=== PATIENT | female | born 1985 | race Caucasian/White ===

== ENCOUNTER 2022-07-24 23:28 | Observation (INO) ==
--- NOTE | 2022-07-25 00:03 | Emergency Department Note ---
History of Present Illness General Chief complaint: Abdominal Pain Stated complaint: SHARP ABD PAIN/PAIN WHEN MOVING OR SITTING Time Seen by Provider: 07/24/22 23:34 History of Present Illness Maximum Pain Intensity: 7 This is a 37-year-old female that presents to the emergency department via private vehicle with complaints of "sharp abdominal pain/pain when moving or sitting". The patient notes that around 23 this afternoon she began with epigastric abdominal discomfort. She notes that it then seemed to subside but after dinner the pain worsened. She notes ongoing pain since that time that abruptly worsened just prior to arrival. She denies any fevers or chills. No chest pain. She notes shortness of breath when the pain occurs as the pain will come in waves at times. She denies any history of [place] or PE. She has never had this pain before. She denies any gastric surgery or history of gallbladder surgery. Current pain 01/29. Home Medications Medication Instructions Recorded Confirmed Type bismuth subsalicylate 262 mg 2 tab PO QID PRN Gi Upset 07/25/22 07/25/22 History tablet (Pepto-Bismol) lisinopril 10 mg tablet 10 mg PO DAILY 07/25/22 07/25/22 History metronidazole 1 % topical gel 1 applic topical HS 07/25/22 07/25/22 History semaglutide 1 mg/dose (4 mg/3 mL) 1 mg subcut WE 07/25/22 07/25/22 History subcutaneous pen injector (Ozempic) Allergies Allergy/AdvReac Type Severity Reaction Status Date / Time No Known Allergies Allergy Mild Verified 07/25/22 02:55 Past Med/Surg History Surgical History Hx of section Social History Smoking Status: Never smoker Preferred Language: Albanian Feels Safe at Home: Yes Review of Systems A total of 10 systems reviewed and were otherwise negative Physical Exam Vital Signs Vital Signs - 24 hr 07/24/22 23:29 07/25/22 00:14 07/25/22 04:26 Temperature 35.6 C L Temperature Source Temporal Artery Scan Pulse Rate 97 H Pulse Rate [Apical] 90 73 Respiratory Rate 20 24 22 Respiratory Effort / Characteristics Non-Labored Spontaneous Non-Labored Spontaneous Non-Labored Spontaneous Respiratory Depth Normal Normal Normal Respiratory Pattern Regular Regular Blood Pressure 213/131 H Blood Pressure [Right Arm] 158/92 H 151/98 H Blood Pressure Mean 158 Blood Pressure Mean [Right Arm] 114 115 Blood Pressure Position [Right Arm] Pulse Oximetry 99 99 96 Oxygen Delivery Method Room Air Room Air Room Air Sepsis New/Unexplained Change in Mental Status N/A Sepsis Action Taken by Nursing No Action Required 07/25/22 00:00 07/25/22 06:30 Temperature Temperature Source Pulse Rate Pulse Rate [Apical] 77 Respiratory Rate 18 Respiratory Effort / Characteristics Non-Labored Spontaneous Respiratory Depth Normal Respiratory Pattern Blood Pressure Blood Pressure [Right Arm] 155/90 H Blood Pressure Mean Blood Pressure Mean [Right Arm] 111 Blood Pressure Position [Right Arm] Sitting Pulse Oximetry 95 98 Oxygen Delivery Method Room Air Room Air Sepsis New/Unexplained Change in Mental Status Sepsis Action Taken by Nursing VITAL SIGNS - Vital signs and nursing notes were reviewed. Hypertensive, otherwise stable. GENERAL -37-year-old female appearing her stated age who is in no acute distress . Communicates well with provider and answers questions appropriately. SKIN - Without rashes. No meningeal or petechial rash. HEAD - NC/AT. EYES - PERRL with EOMI bilaterally. Sclera anicteric. EARS - No deformities of external structures noted on gross examination bilaterally MOUTH/OROPHARYNX - Without perioral cyanosis. NECK - Neck with FROM. No nuchal rigidity. LUNGS - Chest wall symmetric without accessory muscle use, intercostals retractions, or central cyanosis. Normal vesicular breath sounds CTA B/L. No wheezes, rales, or rhonchi appreciated. CARDIAC - RRR with S1/S2. No murmur, rubs, or gallops appreciated. ABDOMEN - Abdominal contour normal without pulsations or visible masses. BS normoactive all four quadrants. There is epigastric abdominal tenderness to palpation. No palpable masses, hepatosplenomegaly, or ascites noted. EXTREMITIES - No clubbing or peripheral cyanosis. +5/5 strength noted in UE/LE bilaterally. NEUROLOGIC - Cranial nerves II through XII grossly intact. PSYCH - A&O,and cooperates fully with examiner. Pt is very pleasant and interacts well with examiner. Course Administered Medications Discontinued Medications Morphine Sulfate (Morphine Sulfate 4 Mg/Ml 1 Ml Carp\\Vial) 4 mg IV NOW STA Stop: 07/25/22 00:31 Last Admin: 07/25/22 00:36 Dose: 4 mg Documented By: CONCEPCIÓN Ondansetron HCl (Ondansetron Inj 2 Mg/Ml 2 Ml Vial) 4 mg IV NOW STA Stop: 07/25/22 00:31 Last Admin: 07/25/22 00:36 Dose: 4 mg Documented By: CONCEPCIÓN Medical Decision Making Laboratory Data Result diagrams: 07/25/22 00:06 07/25/22 00:06 Lab Results 07/25/22 07/25/22 07/25/22 Range/Units 00:06 00:06 00:06 WBC 8.57 (4.8-10.8) K/ul RBC 5.69 H (3.93-5.22) M/uL Hgb 13.6 (12.0-16.0) g/dl Hct 42.4 (34.1-44.9) % MCV 74.5 L (80.0-100.0) fL MCH 23.9 L (25.0-34.0) pg MCHC 32.1 (32.0-36.0) g/dL RDW Std Deviation 39.5 (36.4-46.3) fL RDW Coeff of [place]ult[place] 14.8 H (11.5-14.5) % Plt Count 270 (130-400) K/uL MPV 8.5 L (9.4-12.3) fL Immature Gran % (Auto) 0.2 % Neut % (Auto) 84.1 % Lymph % (Auto) 9.3 % [place] % (Auto) 5.4 % Eos % (Auto) 0.8 % Baso % (Auto) 0.2 % Neut # (Auto) 7.20 H (1.4-6.5) K/uL Lymph # (Auto) 0.80 L (1.2-3.4) K/uL [place] # (Auto) 0.46 (0.24-0.82) K/uL Eos # (Auto) 0.07 (0-0.50) K/uL Baso # (Auto) 0.02 (0-0.2) K/uL Immature Gran # (Auto) 0.02 (0.00-0.02) K/uL PT 10.8 (9.0-12.0) Seconds INR 1.0 (0.9-1.1) APTT 22.8 (21.0-31.0) Seconds PTT Ratio 0.8 Sodium 135 L (136-145) mmol/L Potassium 3.9 (3.5-5.1) mmol/L Chloride 100 (98-107) mmol/L Carbon Dioxide 25 (21-32) mmol/L Anion Gap 10 (3-11) BUN 10 (6-23) mg/dl Creatinine 0.63 (0.6-1.2) mg/dl Est Cr Clr Drug Dosing 175.5 ml/min Est GFR ( Amer) 131.0 ml/min Est GFR (Non-Af Amer) 113.0 ml/min BUN/Creatinine Ratio 15.9 (10-20) Glucose 115 H (70-99(Fasting)) mg/dl Calcium 9.4 (8.5-10.1) mg/dl Magnesium 2.4 (1.7-2.4) mg/dl Total Bilirubin 1.6 H (0.2-1.0) mg/dl AST 178 H (13-39) U/L ALT 118 H (7-52) U/L Alkaline Phosphatase 154 H (34-104) U/L Troponin I High Sens 3.7 (0-14) pg/ml Total Protein 8.4 H (6.0-8.3) gm/dl Albumin 4.4 (3.4-5.0) gm/dl Globulin 4.0 (2.5-4.0) gm/dl Albumin/Globulin Ratio 1.1 (0.9-2) Lipase 14 (11-82) U/L HCG, Qual (Negative) Urine Color Urine Appearance (Clear) Urine pH (4.5-7.5) Ur Specific [place] (1.000-1.030) Urine Protein (Negative) Urine Glucose (UA) (Negative) Urine Ketones (Negative) Urine Blood (Negative) Urine Nitrite (Negative) Urine Bilirubin (Negative) Urine Urobilinogen (Negative) Ur Leukocyte Esterase (Negative) Urine WBC (Auto) (0-5) /hpf Urine RBC (Auto) (0-4) /hpf U Hyaline Cast (Auto) (0-5) /lpf U Epithel Cells (Auto) (0-5) /lpf Urine Bacteria (Auto) (Negative) SARS-CoV-2, RNA, NAAT (NEGATIVE) 07/25/22 07/25/22 07/25/22 Range/Units 00:06 00:40 Unknown WBC (4.8-10.8) K/ul RBC (3.93-5.22) M/uL Hgb (12.0-16.0) g/dl Hct (34.1-44.9) % MCV (80.0-100.0) fL MCH (25.0-34.0) pg MCHC (32.0-36.0) g/dL RDW Std Deviation (36.4-46.3) fL RDW Coeff of [place] (11.5-14.5) % Plt Count (130-400) K/uL MPV (9.4-12.3) fL Immature Gran % (Auto) % Neut % (Auto) % Lymph % (Auto) % [place] % (Auto) % Eos % (Auto) % Baso % (Auto) % Neut # (Auto) (1.4-6.5) K/uL Lymph # (Auto) (1.2-3.4) K/uL [place] # (Auto) (0.24-0.82) K/uL Eos # (Auto) (0-0.50) K/uL Baso # (Auto) (0-0.2) K/uL Immature Gran # (Auto) (0.00-0.02) K/uL PT (9.0-12.0) Seconds INR (0.9-1.1) APTT (21.0-31.0) Seconds PTT Ratio Sodium (136-145) mmol/L Potassium (3.5-5.1) mmol/L Chloride (98-107) mmol/L Carbon Dioxide (21-32) mmol/L Anion Gap (3-11) BUN (6-23) mg/dl Creatinine (0.6-1.2) mg/dl Est Cr Clr Drug Dosing ml/min Est GFR ( Amer) ml/min Est GFR (Non-Af Amer) ml/min BUN/Creatinine Ratio (10-20) Glucose (70-99(Fasting)) mg/dl Calcium (8.5-10.1) mg/dl Magnesium (1.7-2.4) mg/dl Total Bilirubin (0.2-1.0) mg/dl AST (13-39) U/L ALT (7-52) U/L Alkaline Phosphatase (34-104) U/L Troponin I High Sens (0-14) pg/ml Total Protein (6.0-8.3) gm/dl Albumin (3.4-5.0) gm/dl Globulin (2.5-4.0) gm/dl Albumin/Globulin Ratio (0.9-2) Lipase (11-82) U/L HCG, Qual Negative (Negative) Urine Color Dark Yellow Urine Appearance Clear (Clear) Urine pH 7.0 (4.5-7.5) Ur Specific [place] 1.024 (1.000-1.030) Urine Protein Trace H (Negative) Urine Glucose (UA) Negative (Negative) Urine Ketones Trace H (Negative) Urine Blood Negative (Negative) Urine Nitrite Positive A (Negative) Urine Bilirubin 1+ H (Negative) Urine Urobilinogen Negative (Negative) Ur Leukocyte Esterase 1+ H (Negative) Urine WBC (Auto) 5-10 H (0-5) /hpf Urine RBC (Auto) 5-10 H (0-4) /hpf U Hyaline Cast (Auto) 5-10 H (0-5) /lpf U Epithel Cells (Auto) >30 H (0-5) /lpf Urine Bacteria (Auto) 1+ H (Negative) SARS-CoV-2, RNA, NAAT NEGATIVE (NEGATIVE) Imaging Data Radiologist's Impression: US RUQ: Cholelithiasis noted with a 1.7 cm gallstone in the region of the neck of the g allbladder. The gallbladder is moderately distended but is not thick-walled. Phrygian cap present which appears to contain material including sludge The common bile duct is normal in caliber The visualized pancreas is normal The liver is normal The right kidney is normal Radiologist: Jamie Can MD Study ready at 01:43 and initial results transmitted at 05:25 MDM Narrative Patient was seen and evaluated as above in room B08. Review was performed of nursing notes and vital signs. After obtaining a thorough history and physical examination the above work up was performed. Patient presents to us today with epigastric abdominal discomfort of sudden onset. She clinically appears well and nontoxic. She is hypertensive on arrival. She is tender in the epigastric region. Options of care were discussed with the patient. IV access was established. Labs were drawn. EKG reveals normal sinus rhythm at a rate of 87 bpm. QTc 457. QRS 104. No ST elevation. Incomplete right bundle noted. Labs reveal no leukocytosis or concerning anemia. Mild hyponatremia 135. Hyperglycemia 115. Transaminitis noted as well as T bili elevation. Troponin negative. hCG negative. Lipase normal. Urinalysis reveals what appears to be a contaminated sample. Ultrasound was obtained. Unfortunately it did take nearly 4 hours to have the ultrasound read by radiology. This did result with abnormalities regarding the gallbladder. I then discussed this with general surgeon, Dr. Marroquin. Patient will be admitted to the hospital for further evaluation and management. Please refer to further documentation regarding her stay. While here in the ED the patient was medicated with IV morphine and IV Zofran. Case was discussed with the attending physician. GCS: 15 In the evaluation and treatment of this patient the following differential diagnoses were entertained: AK, PE, pericarditis, costochondritis, dissection, bowel obstruction, pancreatitis, cholecystitis, ascending cholangitis, among ot hers. Impression & Plan Abdominal pain, epigastric, Transaminitis, Abnormal ultrasound of gallbladder Discharge Plan Visit Data Chief Complaint: Abdominal Pain Stated Complaint: SHARP ABD PAIN/PAIN WHEN MOVING OR SITTING ED Provider: Mariola Guillaume ED Midlevel Provider: Pancho Kee Discharge Problem: Abdominal pain, epigastric, Transaminitis, Abnormal ultrasound of gallbladder Patient Disposition: Being Evaluated by Surgeon Condition: Good Forms Stand Alone Forms: My [employer] Prescriptions Prescriptions: No Action lisinopril 10 mg tablet 10 mg PO DAILY Pepto-Bismol 262 mg Tablet 2 tab PO QID PRN (Reason: Gi Upset) metronidazole 1 % gel 1 applic TOPICAL HS Ozempic 1 mg/dose (4 mg/3 mL) pen injector 1 mg SUBCUT WE Referrals Referrals: Luzma Louie, [Primary Care Provider] -
[2022-07-25 00:29] LABS: Basophils # (auto) 0.02 K/uL (0-0.2); Basophils % (auto) 0.2 %; Eosinophils # (auto) 0.07 K/uL (0-0.50); Eosinophils % (auto) 0.8 %; Hematocrit (blood only) 42.4 % (34.1-44.9); Hemoglobin 13.6 g/dl (12.0-16.0); Immature Granulocytes # (auto) 0.02 K/uL (0.00-0.02); Immature Granulocytes % (auto) 0.2 %; Lymphocytes % (auto) 9.3 %; Mean Corpuscular Hemoglobin 23.9 pg (25.0-34.0); Mean Corpuscular Hgb Conc 32.1 g/dL (32.0-36.0); Mean Corpuscular Volume 74.5 fL (80.0-100.0); Mean Platelet Volume 8.5 fL (9.4-12.3); Monocytes # (auto) 0.46 K/uL (0.24-0.82); Monocytes % (auto) 5.4 %; Neutrophils % (auto) 84.1 %; Platelet Count 270 K/uL (130-400); RDW Coefficient of Variation 14.8 % (11.5-14.5); RDW Standard Deviation 39.5 fL (36.4-46.3); Red Blood Count 5.69 M/uL (3.93-5.22); White Blood Count 8.57 K/ul (4.8-10.8)
[2022-07-25] MEDS ORDERED: ONDANSETRON INJ 2 MG/ML 2 ML VIAL IV STA (00:30)
[2022-07-25] MEDS ORDERED: MoRPHine SULFATE 4 MG/ML 1 ML CARP\\VIAL IV STA (00:30)
[2022-07-25 00:41] LABS: Partial Thromboplastin Ratio 0.8; Partial Thromboplastin Time 22.8 Seconds (21.0-31.0); Prothrombin Time 10.8 Seconds (9.0-12.0)
[2022-07-25 00:54] LABS: Pregnancy Test, Serum Negative (Negative)
[2022-07-25 00:58] LABS: Albumin Globulin Ratio 1.1 (0.9-2); Albumin Level 4.4 gm/dl (3.4-5.0); BUN Creatinine Ratio 15.9 (10-20); Bilirubin,Total 1.6 mg/dl (0.2-1.0); Calcium 9.4 mg/dl (8.5-10.1); Creatinine Clr Calc Pharmacy 175.5 ml/min; Magnesium 2.4 mg/dl (1.7-2.4); Potassium 3.9 mmol/L (3.5-5.1); Total Protein 8.4 gm/dl (6.0-8.3)
[2022-07-25 01:00] LABS: Troponin I High Sensitivity 3.7 pg/ml (0-14)
[2022-07-25 01:07] LABS: Appearance Urine Clear (Clear); Bacteria Urine Automated 1+ (Negative); Blood Urine Negative (Negative); Color Urine Dark Yellow; Epithelial Cell Urine Auto >30 /lpf (0-5); Glucose Urine UA Negative (Negative); Ketones Urine Trace (Negative); Leukocyte Esterase Urine 1+ (Negative); Nitrite Urine Positive (Negative); Protein Urine Trace (Negative); Specific Gravity Urine 1.024 (1.000-1.030); Urobilinogen Urine Negative (Negative)
[2022-07-25 01:14] LABS: Bilirubin Urine 1+ (Negative)
[2022-07-25] MEDS ORDERED: AMPICILLIN/SULBACTAM SOD 3,000 MG in 0.9 % SODIUM CHLORIDE 100 ML IV SCH (06:00)
--- NOTE | 2022-07-25 07:41 | Ultrasound Report ---
US gallbladder HISTORY: 37 years-old Female Epigastric abd pain . Acute epigastric abdominal pain COMPARISON: CTA chest 10/20/2014 TECHNIQUE: Multiple real-time sonographic images of the abdominal right upper quadrant were obtained assessing grayscale appearance and color flow FINDINGS: Visualized pancreas is unremarkable. The liver measures up to 17 cm in length with increased echogeni city. No hepatic mass identified. Cholelithiasis with gallstones measuring up to 1.8 cm within the ga llbladder neck. Mild layering gallbladder sludge. No gallbladder wall thickening or pericholecystic f luid. Sonographic [place] sign was unable to be assessed secondary to the patient receiving pain medic ation prior to the study. Normal common bile duct, 3 mm. The imaged right kidney is unremarkable without hydronephrosis. IMPRESSION: 1. Cholelithiasis and gallbladder sludge without sonographic evidence of acute cholecystitis. 2. No biliary ductal dilation. 3. Mildly increased echogenicity of the liver may represent hepatic steatosis. ACT 112: Negative or not required by law. The above report was generated using voice recognition software. It may contain grammatical, syntax o r spelling errors. Electronically signed by: Sagar Calles M.D. 07/25/2022 7:40 AM
--- NOTE | 2022-07-25 07:56 | XRay Report ---
XR chest 1V portable HISTORY: 37 years-old Female Epigastric abdominal pain acute epigastric abdominal pain COMPARISON: Gallbladder ultrasound of same day, CT chest 10/20/2014 TECHNIQUE: AP view of the chest FINDINGS: Cardiomediastinal and hilar silhouettes are within normal limits. No pneumothorax, pleural effusion, airspace consolidation or overt pulmonary edema. Degenerative changes of the shoulders and spine. IMPRESSION: No acute process. ACT 112: Negative or not required by law. The above report was generated using voice recognition software. It may contain grammatical, syntax o r spelling errors. Electronically signed by: Sagar Calles M.D. 07/25/2022 7:55 AM
[2022-07-25] MEDS ORDERED: ONDANSETRON INJ 2 MG/ML 2 ML VIAL IV PRN (08:02)
[2022-07-25] MEDS ORDERED: MoRPHine SULFATE 4 MG/ML 1 ML CARP\\VIAL IV PRN (08:02)
[2022-07-25] MEDS ORDERED: MoRPHine SULFATE 2 MG/ML CARP IV PRN (08:02)
[2022-07-25] MEDS ORDERED: oxyCODONE/ACETAMINOPHEN 5mg/325mg TAB PO PRN ×2 (08:02)
[2022-07-25] MEDS: LACTATED RINGER'S 1,000 ML IV SCH ×2 (08:20→19:07)
[2022-07-25] MEDS: lisinopril 10 MG TAB PO SCH (09:18)
[2022-07-25] MEDS: ENOXAPARIN INJ 40 MG/0.4 ML SYR SQ SCH ×2 (09:19→20:17)
--- NOTE | 2022-07-25 12:46 | Electrocardiogram Report ---
Test Reason : Blood Pressure : / mmHG Vent. Rate : 087 BPM Atrial Rate : 087 BPM P-R Int : 158 ms QRS Dur : 104 ms QT Int : 380 ms P-R-T Axes : 027 -23 024 degrees QTc Int : 457 ms Poor data quality, interpretation may be adversely affected Normal sinus rhythm Incomplete right bundle branch block Poor R wave progression, consider anterior TX vs. lead placement vs. LVH Abnormal ECG No previous ECGs available Confirmed by David Frank ([id number]) on 07/25/2022 12:45:50 PM Referred By: REFERRED SELF Confirmed By:David Frank
[2022-07-25] MEDS: ACETAMINOPHEN 325 MG TAB PO PRN (15:30)
--- NOTE | 2022-07-25 17:42 | Surgery Consultation ---
Date of Consultation July 25, 2022 Assessment & Plan (1) Abdominal pain, epigastric: see below (2) Acute cholecystitis due to biliary calculus: pt is a 37 year-old female who was admitted to hospital for acute abdominal pain, IMP : acute cholecystitis, cholelithiasis, possible CBD stone, plan, base on (t) bili to 1.5, possible CBD stone, consult GI for ERCP, continue treatment, repeat labs in morning, will F/U History of Present Illness Reason for Consultation: acute cholecystitis Attending Physician: Juana Marroquin MD History of Present Illness Chief complaint: Abdominal Pain Stated complaint: SHARP ABD PAIN/PAIN WHEN MOVING OR SITTING Time Seen by Provider: 07/24/22 23:34 History of Present Illness Maximum Pain Intensity: 7 This is a 37-year-old female that presents to the emergency department via private vehicle with complaints of "sharp abdominal pain/pain when moving or sitting". The patient notes that around 23 this afternoon she began with epigastric abdominal discomfort. She notes that it then seemed to subside but after dinner the pain worsened. She notes ongoing pain since that time that abruptly worsened just prior to arrival. She denies any fevers or chills. No chest pain. She notes shortness of breath when the pain occurs as the pain will come in waves at times. She denies any history of [place] or PE. She has never had this pain before. She denies any gastric surgery or history of gallbladder surgery. Current pain 01/29. I ( Saurav Bean MD ) for consult acute cholecystitis, with gallstone, I reviewed pt' sH/P, labs U/S with pt, pt feels much better, no significant abdominal pain now, no fever, Home Medications Medication Instructions Recorded Confirmed Type bismuth subsalicylate 262 mg 2 tab PO QID PRN Gi Upset 07/25/2207/25 History tablet (Pepto-Bismol) lisinopril 10 mg tablet 10 mg PO DAILY 07/25/22 07/25/22 History metronidazole 1 % topical gel 1 applic topical HS 07/25/22 07/25/22 H istory semaglutide 1 mg/dose (4 mg/3 mL) 1 mg subcut WE 07/25/22 History subcutaneous pen injector (Ozempic) Allergies Allergy/AdvReac Type Severity Reaction Status Date / Time No Known Allergies Allergy Mild Verified 07/25/22 02:55 Past Med/Surg History Surgical History Hx of section Social History Smoking Status: Never smoker Preferred Language: Kittitian Feels Safe at Home: Yes Review of Systems A total of 10 systems reviewed and were otherwise negative Allergies Allergy/AdvReac Type Severity Reaction Status Date / Time No Known Allergies Allergy Mild Verified 07/25/22 02:55 Home Medications Medication Instructions Recorded Confirmed Type bismuth subsalicylate 262 mg 2 tab PO QID PRN Gi Upset 07/25/22 07/25/22 History tablet (Pepto-Bismol) lisinopril 10 mg tablet 10 mg PO DAILY 07/25/22 07/25/22 History metronidazole 1 % topical gel 1 applic topical HS 07/25/22 07/25/22 History semaglutide 1 mg/dose (4 mg/3 mL) 1 mg subcut WE 07/25/22 07/25/22 History subcutaneous pen injector (Ozempic) Patient History Surgical History Hx of section Social History Smoking Status: Never smoker Hx Alcohol Use: No Hx Substance Use: No Preferred Language: Kittitian Communication Ability: Effective Bulb Sorter Required: No Beliefs That Will Affect Care: None Current Living Situation: Spouse Other Information That Helps Us Care for You: No Feels Safe at Home: Yes Safety Concerns: Feels Safe At This Time Assistive Devices: None Review of Systems Constitutional: obesity Eyes: as per Subjective / HPI Respiratory: as per Subjective / HPI Cardiovascular: as per Subjective / HPI Gastrointestinal: as per Subjective / HPI Genitourinary: as per Subjective / HPI Integumentary: as per Subjective / HPI Neurologic: as per Subjective / HPI Psychiatric: as per Subjective / HPI Endocrine: as per Subjective / HPI Physical Exam Constitutional: WD/WN, vitals as above Eyes: PERRL, conjunctivae normal, anicteric sclerae Neck: trachea midline, no thyromegaly Respiratory: normal respiratory effort, lungs clear to auscultation Cardiovascular: RRR, no murmur, no edema Results & Data ([facility]) Vital Signs (Past 12 Hours) Vital Signs Temp Pulse Pulse Pulse Resp BP BP 07/25/22 14:39 36.8 C 87 18 137/85 07/25/22 07:56 36.8 C 98 H 18 173/86 H 07/25/22 07:47 73 18 155/90 H 07/25/22 07:34 80 18 155/90 H 07/25/22 06:30 77 18 155/90 H Pulse Ox O2 Del Method 07/25/22 14:39 97 Room Air 07/25/22 07:56 97 Room Air 07/25/22 07:47 97 Room Air 07/25/22 07:34 96 Room Air 07/25/22 06:30 98 Room Air Laboratory Results Abnormal lab results 07/25/22 07/25/22 07/25/22 Range/Units 00:06 00:06 00:40 RBC 5.69 H (3.93-5.22) M/uL MCV 74.5 L (80.0-100.0) fL MCH 23.9 L (25.0-34.0) pg RDW Coeff of Sultana 14.8 H (11.5-14.5) % MPV 8.5 L (9.4-12.3) fL Neut # (Auto) 7.20 H (1.4-6.5) K/uL Lymph # (Auto) 0.80 L (1.2-3.4) K/uL Sodium 135 L (136-145) mmol/L Glucose 115 H (70-99(Fasting)) mg/dl Total Bilirubin 1.6 H (0.2-1.0) mg/dl AST 178 H (13-39) U/L ALT 118 H (7-52) U/L Alkaline Phosphatase 154 H (34-104) U/L Total Protein 8.4 H (6.0-8.3) gm/dl Urine Protein Trace H (Negative) Urine Ketones Trace H (Negative) Urine Nitrite Positive A (Negative) Urine Bilirubin 1+ H (Negative) Ur Leukocyte Esterase 1+ H (Negative) Urine WBC (Auto) 5-10 H (0-5) /hpf Urine RBC (Auto) 5-10 H (0-4) /hpf U Hyaline Cast (Auto) 5-10 H (0-5) /lpf U Epithel Cells (Auto) >30 H (0-5) /lpf Urine Bacteria (Auto) 1+ H (Negative) Diagnostic Findings US gallbladder HISTORY: 37 years-old Female Epigastric abd pain . Acute epigastric abdominal pain COMPARISON: CTA chest 10/20/2014 TECHNIQUE: Multiple real-time sonographic images of the abdominal right upper quadrant were obtained assessing grayscale appearance and color flow FINDINGS: Visualized pancreas is unremarkable. The liver measures up to 17 cm in length with increased echogenicity. No hepatic mass identified. Cholelithiasis with gallstones measuring up to 1.8 cm within the gallbladder neck. Mild layering gallbladder sludge. No gallbladder wall thickening or pericholecystic fluid. Sonographic [place] sign was unable to be assessed secondary to the patient receiving pain medication prior to the study. Normal common bile duct, 3 mm. The imaged right kidney is unremarkable without hydronephrosis. IMPRESSION: 1. Cholelithiasis and gallbladder sludge without sonographic evidence of acute cholecystitis. 2. No biliary ductal dilation. 3. Mildly increased echogenicity of the liver may represent hepatic steatosis. ACT 112: Negative or not required by law.
[2022-07-26] MEDS: LACTATED RINGER'S 1,000 ML IV SCH ×4 (04:44→22:57)
[2022-07-26 06:13] LABS: Basophils # (auto) 0.04 K/uL (0-0.2); Basophils % (auto) 0.7 %; Eosinophils # (auto) 0.36 K/uL (0-0.50); Hematocrit (blood only) 36.8 % (34.1-44.9); Hemoglobin 11.8 g/dl (12.0-16.0); Immature Granulocytes # (auto) 0.02 K/uL (0.00-0.02); Immature Granulocytes % (auto) 0.3 %; Lymphocytes # (auto) 2.09 K/uL (1.2-3.4); Lymphocytes % (auto) 34.5 %; Mean Corpuscular Hemoglobin 24.4 pg (25.0-34.0); Mean Corpuscular Hgb Conc 32.1 g/dL (32.0-36.0); Mean Corpuscular Volume 76.2 fL (80.0-100.0); Mean Platelet Volume 8.4 fL (9.4-12.3); Monocytes # (auto) 0.41 K/uL (0.24-0.82); Monocytes % (auto) 6.8 %; Neutrophils # (auto) 3.13 K/uL (1.4-6.5); Neutrophils % (auto) 51.7 %; Platelet Count 219 K/uL (130-400); RDW Coefficient of Variation 15.1 % (11.5-14.5); RDW Standard Deviation 41.3 fL (36.4-46.3); Red Blood Count 4.83 M/uL (3.93-5.22); White Blood Count 6.05 K/ul (4.8-10.8)
[2022-07-26 06:36] LABS: Albumin Globulin Ratio 1.1 (0.9-2); Albumin Level 3.6 gm/dl (3.4-5.0); BUN Creatinine Ratio 11.8 (10-20); Calcium 8.5 mg/dl (8.5-10.1); Creatinine Clr Calc Pharmacy 145.5 ml/min; Est GFR (African American) 114.5 ml/min; Est GFR (Non-African American) 98.8 ml/min; Globulin 3.4 gm/dl (2.5-4.0); Potassium 4.1 mmol/L (3.5-5.1)
[2022-07-26] MEDS: ENOXAPARIN INJ 40 MG/0.4 ML SYR SQ SCH ×2 (08:43→21:02)
[2022-07-26] MEDS: lisinopril 10 MG TAB PO SCH (08:44)
--- NOTE | 2022-07-26 10:23 | Gastrointestinal Consultation ---
Date of Consultation July 26, 2022 Assessment & Plan (1) Acute cholecystitis due to biliary calculus: (2) Abdominal pain, epigastric: (3) Transaminitis: (4) Abnormal ultrasound of gallbladder: Plan Her clinical presentation, labs and imaging are most suggestive of having passed a gallstone. MRCP was ordered early this morning and results are pending. Will review when available. If there is evidence of choledocholithiasis, we will arrange ERCP otherwise, plan for surgery going forward with cholecystectomy. For now, keep patient NPO. Provide analgesics if needed. We will continue to follow closely. Addendum: MRCP w Cholelithiasis w/o acute cholecystitis; No krista dil or choledocholithiasis. No indication for ERCP. Recommend following LFTs to resolution - as OP in a month would be fine. OP GI consult for elevated LFTs if they do not resolve. GI will sign off. Supervising Physician Co-Signing Physician Notes Attg add: I interviewed and examined pt, reviewed chart and labs. Pt with upper abd pain, increased LFTs, bili 1.5, nl lipase. MRCP without krista dil or choledocho. Please cont to follow LFT's post ofelia, and notify us if fail to improve. History of Present Illness Reason for Consultation: epigastric abd pain, transaminitis, abnormal US Requesting Physician: Chilango Deleon PA-C/Juana Marroquin MD Attending Physician: Juana Marroquin MD History of Present Illness Ms. Malena Faith is a 37-year-old female patient of Dr. Rincon with a history of obesity (lost about 25 pounds in the last year on Ozempic), exercise- induced asthma who experienced lower chest and upper abdomen pain which began suddenly around 3 PM on Sunday (2 days ago), the pain radiated around to her lower ribs to her back caused her to have some shallow breathing, pain was severe colicky. Eventually it subsided but returned at 10 PM that same day. She presented to the emergency department the next day (yesterday) where LFTs were elevated,(slightly improved today T bili 1.0->1.6, AST 178->109, ALT 118- >190, Alk Phos 158->169), and ultrasound suggested gallstones but normal common bile duct. LFTs were normal on most recent outpatient labs in 2020. Lipase is normal here. Her pain has completely resolved. She denies any fevers chills sweats diarrhea at one point, she induced vomiting but did not get relief from her symptoms. Surgery is planned for this afternoon. GI is consulted to consider ERCP. Allergies Allergy/AdvReac Type Severity Reaction Status Date / Time No Known Allergies Allergy Mild Verified 07/25/22 02:55 Home Medications Medication Instructions Recorded Confirmed Type bismuth subsalicylate 262 mg 2 tab PO QID PRN Gi Upset 07/25/22 07/25/22 History tablet (Pepto-Bismol) lisinopril 10 mg tablet 10 mg PO DAILY 07/25/22 07/25/22 History metronidazole 1 % topical gel 1 applic topical HS 07/25/22 07/25/22 History semaglutide 1 mg/dose (4 mg/3 mL) 1 mg subcut WE 07/25/22 07/25/22 History subcutaneous pen injector (Ozempic) Patient History Surgical History Hx of section Social History Smoking Status: Never smoker Hx Alcohol Use: No Hx Substance Use: No Preferred Language: Croatian Communication Ability: Effective Scientific Photographer Required: No Beliefs That Will Affect Care: None Current Living Situation: Spouse Other Information That Helps Us Care for You: No Feels Safe at Home: Yes Safety Concerns: Feels Safe At This Time Assistive Devices: None Review of Systems Review of Systems: ROS: Gen: Denies weakness, fevers, no unexplained weight loss Eyes: No eye redness, or pain, no recent vision changes Resp: No SOB, no cough Cardio: No palpitations/irregular beats, no chest pain GI: As per HPI, otherwise (-). : Denies pain on urination Skin: No jaundice, itching or new rashes A total of 12 systems were reviewed, all others (-). Physical Exam Constitutional: well developed, well nourished, + obese and cooperative; no acute distress Eyes: PERRL, conjunctivae normal, anicteric sclerae ENMT: external ear and nose normal, oropharynx normal Neck: trachea midline, no thyromegaly Respiratory: normal respiratory effort, lungs clear to auscultation Cardiovascular: RRR, no murmur, no edema Gastrointestinal (Abdomen): normal bowel sounds, soft, nontender, no hepatosplenomegaly Musculoskeletal: no cyanosis or clubbing, extremities motor strength 5/5 Skin: no rashes, warm and dry Neurologic: PERRL, EOMI, accommodation nl, no face palsy, no dysarthria Psychiatric: A+Ox3, euthymic affect Lymphatic: no cervical or axillary lymphadenopathy Results & Data ([facility]) Vital Signs (Past 12 Hours) Vital Signs Temp Pulse Resp BP Pulse Ox O2 Del Method 07/26/22 07:53 36.7 C 74 16 152/89 H 98 Room Air Laboratory Results For LFTs, lipase see HPI WBC 6.05, Hb 11.8, HCT 36.8, PLT S2 19, NA 138, K4.1, CL 1013, CO2 28, BUN 9, CR 0.86, glucose 84. Diagnostic Findings Gallbladder US 07/24/22: 1. Cholelithiasis and gallbladder sludge without sonographic evidence of acute cholecystitis. 2. No biliary ductal dilation. 3. Mildly increased echogenicity of the liver may represent hepatic steatosis.
--- NOTE | 2022-07-26 10:54 | Magnetic Resonance Report ---
MRCP CLINICAL HISTORY: Elevated hepatic transaminases. Cholelithiasis. COMPARISON STUDY: Abdominal ultrasound dated 07/25/2022. TECHNIQUE: Abdominal MRCP is performed utilizing various T2 weighted sequences in the axial and coron al planes. 3-D reformats are created and assessed. IV contrast was not administered for this examinat ion. FINDINGS: There is a 1.7 cm gallstone. There is a large fold in the fundal region which also contains stones an d sludge. There is no gallbladder wall thickening or surrounding inflammation to suggest acute cholec ystitis. There is no intra or extrahepatic biliary ductal dilatation. The common bile duct measures u p to 3.5 mm in diameter. There are no intraluminal filling defects to suggest choledocholithiasis. Th e pancreatic duct is normal in caliber and difficult to visualize. The unenhanced liver, spleen, pancreas, adrenal glands, and kidneys are grossly normal. The abdominal aorta is normal in course and caliber. There is no evidence of bowel obstruction. No ascites is seen . There is no pleural effusion. There is no evidence of destructive bone lesion. IMPRESSION: 1. Cholelithiasis with no evidence of acute cholecystitis. 2. There is no intra or extrahepatic biliary ductal dilatation. No choledocholithiasis is seen. Dictated: 07/26/2022 10:26 AM Transcribed: 07/26/2022 10:49 AM Lorie [id number] ALENA_[email or web address] Electronically signed by: Dorian Mendiola M.D. 07/26/2022 10:53 AM
[2022-07-26] MEDS ORDERED: ROCURONIUM BROMIDE 10 MG/ML 5 ML VIAL IV ONE (13:56)
[2022-07-26] MEDS ORDERED: MIDAZOLAM HCL 1 MG/ML 2ML VIAL ONE (13:56)
[2022-07-26] MEDS ORDERED: SUCCINYLCHOLINE CHLORIDE 20 MG/ML 10 ML VIAL IV ONE (13:56)
[2022-07-26] MEDS ORDERED: ONDANSETRON INJ 2 MG/ML 2 ML VIAL ONE (13:56)
[2022-07-26] MEDS ORDERED: DEXAMETHASONE SOD INJ 4 MG/ML VIAL ONE (13:56)
[2022-07-26] MEDS ORDERED: fentaNYL citrate 100 MCG/2 ML VIAL ONE ×2 (13:56→16:00)
[2022-07-26] MEDS ORDERED: LIDOCAINE 2% MPF LOCAL 5 ML VIAL INFIL ONE (13:56)
[2022-07-26] MEDS ORDERED: PROPOFOL IV EMULSION 10 MG/ML 20 ML VIAL IV ONE (13:56)
--- NOTE | 2022-07-26 14:10 | Surgery Progress Note ---
Date of Service July 26, 2022 Assessment & Plan (1) Abdominal pain, epigastric: Plan: see below (2) Acute cholecystitis due to biliary calculus: Plan: pt is a 37 year-old female who was admitted to hospital for acute abdominal pain, IMP : acute cholecystitis, cholelithiasis, possible CBD stone, plan, base on (t) bili to 1.5, possible CBD stone, consult GI for ERCP, continue treatment, repeat labs in morning, will F/U 07/26/2022 2:12PM Dr. Bean IMP : acute cholecystitis, cholelithiasis plan, I recommend to do laparoscopic cholecystectomy, possible open or cholangiogram, D/W benefits, risks and alternatives of the surgery, the risks - infection, bleeding, injury other organs, incisional hernia, may need ERCP, pt understood, she agreed with surgery, she signed informed consent, i answered all questions, pre-op antibiotic, Admission and Anticipated Discharge Date Admission Date: July 25, 2022 Subjective F/U Acute cholecystitis with gallstone, pt feels better, less abdominal pain, no nausea, no vomiting, no fever, I reviewed MRCP with pt, -IMPRESSION: 1. Cholelithiasis with no evidence of acute cholecystitis. 2. There is no intra or extrahepatic biliary ductal dilatation. No choledocholithiasis is seen. Review of Systems Constitutional: obesity Eyes: as per Subjective / HPI Respiratory: as per Subjective / HPI Cardiovascular: as per Subjective / HPI Gastrointestinal: as per Subjective / HPI Genitourinary: as per Subjective / HPI Integumentary: as per Subjective / HPI Neurologic: as per Subjective / HPI Psychiatric: as per Subjective / HPI Endocrine: as per Subjective / HPI Physical Exam Constitutional: WD/WN, vitals as above Eyes: PERRL, conjunctivae normal, anicteric sclerae Neck: trachea midline, no thyromegaly Respiratory: normal respiratory effort, lungs clear to auscultation Cardiovascular: RRR, no murmur, no edema Gastrointestinal (Abdomen): soft, mild tenderness at RUQ, no rebound pain, no distend, BS +, Musculoskeletal: no cyanosis or clubbing, extremities motor strength 5/5 Neurologic: patellar DTR's 2+ bilat, sensation intact Psychiatric: A+Ox3, euthymic affect Results & Data ([facility]) Vital Signs (Past 12 Hours) Vital Signs Temp Pulse Resp BP Pulse Ox O2 Del Method 07/26/22 07:53 36.7 C 74 16 152/89 H 98 Room Air Laboratory Results Abnormal lab results 07/26/22 07/26/22 Range/Units 05:53 05:53 Hgb 11.8 L (12.0-16.0) g/dl MCV 76.2 L (80.0-100.0) fL MCH 24.4 L (25.0-34.0) pg RDW Coeff of Sultana 15.1 H (11.5-14.5) % MPV 8.4 L (9.4-12.3) fL AST 109 H (13-39) U/L ALT 190 H (7-52) U/L Alkaline Phosphatase 169 H (34-104) U/L Diagnostic Findings MRCP CLINICAL HISTORY: Elevated hepatic transaminases. Cholelithiasis. COMPARISON STUDY: Abdominal ultrasound dated 07/25/2022. TECHNIQUE: Abdominal MRCP is performed utilizing various T2 weighted sequences in the axial and coronal planes. 3-D reformats are created and assessed. IV contrast was not administered for this examination. FINDINGS: There is a 1.7 cm gallstone. There is a large fold in the fundal region which also contains stones and sludge. There is no gallbladder wall thickening or surrounding inflammation to suggest acute cholecystitis. There is no intra or extrahepatic biliary ductal dilatation. The common bile duct measures up to 3.5 mm in diameter. There are no intraluminal filling defects to suggest choledocholithiasis. The pancreatic duct is normal in caliber and difficult to visualize. The unenhanced liver, spleen, pancreas, adrenal glands, and kidneys are grossly normal. The abdominal aorta is normal in course and caliber. There is no evidence of bowel obstruction. No ascites is seen. There is no pleural effusion. There is no evidence of destructive bone lesion.
[2022-07-26] MEDS ORDERED: LIDOCAINE 1% LOCAL 20 ML VIAL ONE (14:11)
[2022-07-26] MEDS ORDERED: BUPIVACAINE 0.5 % 5 MG/1 ML MPF 30ML VIAL ONE (14:11)
[2022-07-26] MEDS ORDERED: ACETAMINOPHEN 1000 MG/100 ML IV IV ONE (14:11)
[2022-07-26] MEDS ORDERED: BACITRACIN OINT 15 GM TUBE ONE (14:11)
--- NOTE | 2022-07-26 14:15 | History & Physical Bridge Note ---
Date of Service July 26, 2022 History & Physical Bridge Note I have examined the patient, reviewed the History & Physical and in the interval since the performance of the History & Physical I have noted the following changes of clinical significance: no changes noted
[2022-07-26] MEDS ORDERED: Nursing to Pharmacy Communication SCH (14:45)
[2022-07-26] MEDS ORDERED: PROMETHAZINE HCL 6.25 MG in SODIUM CHLORIDE 0.9% 50 ML IV PRN (14:55)
[2022-07-26] MEDS ORDERED: fentaNYL citrate 100 MCG/2 ML VIAL IV PRN (14:55)
[2022-07-26] MEDS ORDERED: ATROPINE SULFATE 0.1 MG/ML 10ML SYR IV PRN (14:55)
[2022-07-26] MEDS ORDERED: ONDANSETRON INJ 2 MG/ML 2 ML VIAL IV PRN (14:55)
[2022-07-26] MEDS ORDERED: ePHEDrine sulfate 50 MG/ML AMP IV PRN (14:55)
--- NOTE | 2022-07-26 14:55 | Anesthesiology Consultation ---
Date of Service July 26, 2022 Assessment & Plan Chart Review Chart Review: Acceptable Risk for Surgery and Patient NOT seen in Pre Admission Testing Consults Requested none Proposed Anesthesia Risk / Benefits Reviewed With: PT / POA / Parent / Guardian, Accepts Plan and Informed Consent Obtained History Surgery Operation Date: 07/26/22 10:40 Proposed Procedures p Laparoscopic Cholecystectomy Possible Cholangiogram - Saurav Bean MD Height/Weight Height: 5 ft 5 in Weight: 146.3 kg Allergies Allergy/AdvReac Type Severity Reaction Status Date / Time No Known Allergies Allergy Mild Verified 07/25/22 02:55 Medications Home Medications Medication Instructions Recorded Confirmed Last Taken bismuth subsalicylate 262 mg 2 tab PO QID PRN Gi Upset 07/25/22 07/25/22 Unknown tablet (Pepto-Bismol) lisinopril 10 mg tablet 10 mg PO DAILY 07/25/22 07/25/22 Unknown metronidazole 1 % topical gel 1 applic topical HS 07/25/22 07/25/22 Unknown semaglutide 1 mg/dose (4 mg/3 mL) 1 mg subcut WE 07/25/22 07/25/22 07/17/22 subcutaneous pen injector (Ozempic) Active Medications Generic Name Dose Route Start Last Admin Trade Name Freq PRN Reason Stop Dose Admin Acetaminophen 650 mg 07/25/22 15:19 07/25/22 15:30 Acetaminophen 325 Mg Tab PO 08/24/22 15:18 650 mg Q4H PRN Administration Headache Enoxaparin Sodium 40 mg 07/25/22 08:30 07/26/22 08:43 Enoxaparin Inj 40 Mg/0.4 Ml Syr SQ 08/24/22 08:29 40 mg Q12H NAYELY Administration Lactated Ringer's 1,000 mls @ 100 mls/hr 07/25/22 08:02 07/26/22 04:44 Lr IV 08/24/22 08:01 100 mls/hr .Q10H NAYELY Administration Lisinopril 10 mg 07/25/22 09:00 07/26/22 08:44 Lisinopril 10 Mg Tab PO 08/24/22 08:59 10 mg DAILY NAYELY Administration NPO Date Last Intake of Fluids: 07/25/22 Time Last Intake of Fluids: 22:00 Date Last Intake of Solids: 07/24/22 Exercise / Class Metabolic Activity II 4-5 Yardwork/Stairs/Walk up hill Past Surgical History Surgical History Hx of section Past Anesthesia History No Hx of Anesthesia Complications and No Family Hx of Anesthesia Complications History of PONV No Hx of PONV and No Hx of Motion Sickness Social History Smoking Status: Never smoker Hx Alcohol Use: No alcohol intake frequency: holidays/special occasions only Hx Substance Use: No Physical Exam Vital Signs Last Vital Signs Temp 36.9 C 07/26/22 14:09 Pulse 93 H 07/26/22 14:09 Resp 20 07/26/22 14:09 BP 156/95 H 07/26/22 14:09 Pulse Ox 98 07/26/22 14:09 O2 Del Method 07/26/22 14:09 Constitutional + morbidly obese ENMT Mouth: no dentition abnormality Thyromental Distance: > or= 3.5 Finger Breadths Mallampati Class: II Neck normal visual inspection Respiratory normal respiratory effort Auscultation: lungs clear to auscultation bilaterally Cardiovascular Rate/Rhythm: regular rate and regular rhythm Psychiatric Orientation: alert Testing Laboratory Results 07/26/22 05:53 07/26/22 05:53 PT 10.8 Seconds (9.0-12.0) 07/25/22 00:06 INR 1.0 (0.9-1.1) 07/25/22 00:06 APTT 22.8 Seconds (21.0-31.0) 07/25/22 00:06 Urine Color Dark Yellow 07/25/22 00:40 Urine Appearance Clear (Clear) 07/25/22 00:40 Urine pH 7.0 (4.5-7.5) 07/25/22 00:40 Ur Specific [place] 1.024 (1.000-1.030) 07/25/22 00:40 Urine Protein Trace (Negative) H 07/25/22 00:40 Urine Glucose (UA) Negative (Negative) 07/25/22 00:40 Urine Ketones Trace (Negative) H 07/25/22 00:40 Urine Nitrite Positive (Negative) A 07/25/22 00:40 Ur Leukocyte Esterase 1+ (Negative) H 07/25/22 00:40 Urine WBC (Auto) 5-10 /hpf (0-5) H 07/25/22 00:40 Urine RBC (Auto) 5-10 /hpf (0-4) H 07/25/22 00:40 U Hyaline Cast (Auto) 5-10 /lpf (0-5) H 07/25/22 00:40 U Epithel Cells (Auto) >30 /lpf (0-5) H 07/25/22 00:40 Urine Bacteria (Auto) 1+ (Negative) H 07/25/22 00:40 07/25/22 00:40 Urine Culture - Final Urine,Clean Catch More than three types of organisms present, all moderate counts mixed probable skin kyung. No further identifications or sensitivities to follow.
[2022-07-26] MEDS ORDERED: KETOROLAC 30 MG/ML VIAL ONE (16:04)
--- NOTE | 2022-07-26 16:11 | Post Operative Brief Note ---
Immediate Post Op Note v1 Date of Surgery July 26, 2022 Pre & Post Diagnosis Operation Date: 07/26/22 10:40 Pre-Op Diagnosis: (2) Acute cholecystitis, cholelithiasis Post-Op Diagnosis: (2) Acute cholecystitis, cholelithiasis I identified the patient and participated in the time-out.: Yes Procedure Operation Date: 07/26/22 10:40 Actual Procedures p Laparoscopic Cholecystectomy (Not Applicable) - Saurav Bean MD Surgeon Saurav Bean MD Overedger [facility] Hyman Estimated Blood Loss 10 Findings Consistent with Post-Op Diagnosis Acute cholecystitis, cholelithiasis Fluids 700ml Specimens gallbladder Anesthesia Type General Complications none Disposition Accompanied Patient To Recovery: Yes
--- NOTE | 2022-07-26 17:06 | Anesthesiology Progress Note ---
Date of Service July 26, 2022 Anesthesia Post Procedure Vital Signs Vital Signs: Temp Pulse Pulse Resp BP BP Pulse Ox 07/26/22 16:50 69 16 141/68 H 93 07/26/22 16:40 77 23 146/75 H 95 07/26/22 16:32 37.0 C 81 20 139/90 98 07/26/22 14:09 36.9 C 93 H 20 156/95 H 98 07/26/22 07:53 36.7 C 74 16 152/89 H 98 07/25/22 21:47 36.7 C 73 18 125/77 96 O2 Del Method O2 Flow Rate 07/26/22 16:50 Room Air 07/26/22 16:40 Room Air 07/26/22 16:32 Oxymask 6 07/26/22 14:09 Room Air 07/26/22 07:53 Room Air 07/25/22 21:47 Room Air Pain Intensity Bilateral Abdomen: Pain Intensity: 2 Head: Pain Intensity: 6 Transfer of Care Handoff Completed per policy Notes Mental Status: alert / awake / arousable and participated in evaluation Patient Amnestic to Procedure: Yes Nausea / Vomiting: adequately controlled Pain: adequately controlled Airway Patency, RR, SpO2: stable & adequate BP & HR: stable & adequate Hydration State: stable & adequate Anesthetic Complications: no major complications apparent and Pt Satisfied with anesthetic care
[2022-07-26] MEDS ORDERED: BISMUTH SUBSALICYLATE 262 MG CHEW PO PRN (18:19)
[2022-07-26] MEDS: AMPICILLIN/SULBACTAM SOD 3,000 MG in 0.9 % SODIUM CHLORIDE 100 ML IV SCH ×2 (19:47→22:57)
--- NOTE | 2022-07-26 21:36 | Operative Report (OR) ---
DATE OF PROCEDURE: 07/26/2022. PREOPERATIVE DIAGNOSES: Acute cholecystitis, cholelithiasis. POSTOPERATIVE DIAGNOSES: Acute cholecystitis, cholelithiasis. OPERATION: Laparoscopic cholecystectomy. SURGEON: Saurav Bean MD. WAREHOUSE SHIPPING ASSOCIATE: Kady Leger PA-C. ANESTHESIA: General. ESTIMATED BLOOD LOSS: About 10 mL. FINDINGS: Acute cholecystitis, cholelithiasis. COMPLICATIONS: None. INDICATIONS FOR THE PROCEDURE: This is a 37-year-old female who presented with acute abdominal pain. The patient was admitted to the hospital. The patient had ultrasound diagnosis of acute cholecysti tis with cholelithiasis and I recommended to do laparoscopic cholecystectomy, possible open, possible cholangiogram. I did talk to the patient about the benefit, risk, alternate procedure. I indicated the risks may include, but not limited to such as bleeding, infection, injury to other organs, incis ional hernia, may need ERCP. The patient understands. She signed informed consent and I answered al l questions. DETAILS OF PROCEDURE: After we identified the patient and verified the procedure, we brought the pat ient to the OR, put the patient in the supine position on the OR table. The patient received SCD on bilateral legs to prevent DVT. Also, the patient received 3 g Unasyn IV for prophylactic antibiotic. The patient received general anesthesia without difficulty. The abdomen was prepped and draped in routine sterile fashion. After timeout, I injected the local anesthesia by using 1% lidocaine mixed with 0.5% Marcaine just above the umbilicus, then I made a small incision just above umbilicus, opene d fascia, opened peritoneum. Under direct vision, put a Rolando trocar in, connected to CO2 to create pneumoperitoneum, flow rate at 6 liters per minute, pressure not more than 14 mmHg. Once we get a n ice pneumoperitoneum, we put a camera in, looked around the abdomen, it showed normal finding on the liver; however, the gallbladder showed significant inflammation, gallbladder wall thickening, edema, omental adhesions to the gallbladder, showed acute cholecystitis. Once we confirmed the diagnosis, I put another two 5 mm trocars on the right upper quadrant and one 11 trocar in the epigastric area. Once all trocars in, we used the grasper to hold the base of gallbladder, put in the direction to the diaphragm. Another grasper to hold the pouch of gallbladder, put it lateral to explore the triangle of Calot. The cystic duct was identified and mobilized. I put two 10 mm metal clips on the proximal cystic duct, one on the distal cystic duct. I used a scissor for transection of cystic duct; rechec kedavid, no bile leak. The cystic artery was identified and mobilized. I put two 10 mm metal clips on t he proximal cystic artery, one on the distal cystic artery, then used a scissor for transection of cy stic artery. Also, the patient had a larger lymph node near the gallbladder. We removed the partial lymph node, base of gallbladder and then we used the Bovie to take down the gallbladder from liver be d. Rechecked, no active bleeding. Then, we removed gallbladder through the catch bag. Then, we re inserted the Rolando trocar in, connected to CO2 to create pneumoperitoneum, again looked around the a bdomen. There was no active bleeding or bile leak from liver bed. Then, we removed all trocars under direct vision. No active bleeding from the trocar site. Pneumoperitoneum was released, then I clos ed the umbilical incision fascial layer by using 0 Vicryl [id number] x2, closed subcutaneous lay er by using 2-0 Vicryl interruptedly, closed skin by using 4-0 Vicryl continuous running, closed the epigastric incision, the fascial layer by using 0 Vicryl [id number] x2, closed subcutaneous laye r by using 2-0 Vicryl interruptedly, closed skin by using 4-0 Vicryl interruptedly, closed another tw o 5 mm trocar site of skin only by using 4-0 Vicryl. Then, we put the dressing on. The patient tole rated the procedure well. All instrument, needle and sponge counts were correct x2 at the end of the case. The patient was transferred to recovery room in stable condition. The specimen was sent to p athology. After the procedure, I did talk to the patient's about the OR finding and the proc edure we did, they understand. The certified nursing assistant instructor, Kady, was necessary for this procedure. Her role was to hold the camera, retraction and exposure. Job ID: [id number]
[2022-07-26] MEDS ORDERED: COUGH DROP (SUGAR FREE) LOZ 24 LOZ/1 BOX BUCCAL ONE (22:55)
[2022-07-26] MEDS: ACETAMINOPHEN 325 MG TAB PO PRN (22:57)
[2022-07-27] MEDS: AMPICILLIN/SULBACTAM SOD 3,000 MG in 0.9 % SODIUM CHLORIDE 100 ML IV SCH ×3 (04:52→10:51)
[2022-07-27] MEDS ORDERED: AMPICILLIN/SULBACTAM SOD 3,000 MG in 0.9 % SODIUM CHLORIDE 100 ML IV SCH (06:00)
[2022-07-27] MEDS: lisinopril 10 MG TAB PO SCH (08:03)
[2022-07-27] MEDS: ENOXAPARIN INJ 40 MG/0.4 ML SYR SQ SCH (08:04)
[2022-07-27 09:17] LABS: Eosinophils # (auto) 0.01 K/uL (0-0.50); Eosinophils % (auto) 0.1 %; Hematocrit (blood only) 38.1 % (34.1-44.9); Hemoglobin 12.2 g/dl (12.0-16.0); Immature Granulocytes # (auto) 0.05 K/uL (0.00-0.02); Immature Granulocytes % (auto) 0.6 %; Lymphocytes # (auto) 1.36 K/uL (1.2-3.4); Mean Corpuscular Hemoglobin 23.8 pg (25.0-34.0); Mean Corpuscular Volume 74.4 fL (80.0-100.0); Monocytes # (auto) 0.49 K/uL (0.24-0.82); Monocytes % (auto) 5.8 %; Neutrophils # (auto) 6.59 K/uL (1.4-6.5); Neutrophils % (auto) 77.5 %; Platelet Count 297 K/uL (130-400); RDW Coefficient of Variation 14.9 % (11.5-14.5); RDW Standard Deviation 39.7 fL (36.4-46.3); Red Blood Count 5.12 M/uL (3.93-5.22)
[2022-07-27 09:43] LABS: Albumin Globulin Ratio 1.1 (0.9-2); BUN Creatinine Ratio 13.1 (10-20); Bilirubin,Total 0.8 mg/dl (0.2-1.0); Calcium 8.7 mg/dl (8.5-10.1); Creatinine Clr Calc Pharmacy 181.2 ml/min; Est GFR (African American) 132.4 ml/min; Est GFR (Non-African American) 114.2 ml/min; Globulin 3.5 gm/dl (2.5-4.0); Potassium 3.7 mmol/L (3.5-5.1); Total Protein 7.5 gm/dl (6.0-8.3)
--- NOTE | 2022-07-27 12:06 | Surgery Progress Note ---
Date of Service July 27, 2022 Assessment & Plan (1) Abdominal pain, epigastric: Plan: see below (2) Acute cholecystitis due to biliary calculus: Plan: pt is a 37 year-old female who was admitted to hospital for acute abdominal pain, IMP : acute cholecystitis, cholelithiasis, possible CBD stone, plan, base on (t) bili to 1.5, possible CBD stone, consult GI for ERCP, continue treatment, repeat labs in morning, will F/U 07/26/2022 2:12PM Dr. Bean IMP : acute cholecystitis, cholelithiasis plan, I recommend to do laparoscopic cholecystectomy, possible open or cholangiogram, D/W benefits, risks and alternatives of the surgery, the risks - infection, bleeding, injury other organs, incisional hernia, may need ERCP, pt understood, she agreed with surgery, she signed informed consent, i answered all questions, pre-op antibiotic, 07/27/2022 12:07PM Dr. Bean F/U S/P lap ofelia POD 1 doing fine, tolerated diet, D/C home today, post-op care instruction was given, pt understood, I answered all questions, F/U or 2 weeks, Admission and Anticipated Discharge Date Admission Date: July 25, 2022 Supervising Physician Co-Signing Physician Notes Attg add: I interviewed and examined pt, reviewed chart and labs. Pt with upper abd pain, increased LFTs, bili 1.5, nl lipase. MRCP without krista dil or choledocho. Please cont to follow LFT's post ofelia, and notify us if fail to improve. Subjective F/U Acute cholecystitis with gallstone, pt feels better, less abdominal pain, no nausea, no vomiting, no fever, I reviewed MRCP with pt, -IMPRESSION: 1. Cholelithiasis with no evidence of acute cholecystitis. 2. There is no intra or extrahepatic biliary ductal dilatation. No choledocholithiasis is seen. F/U S/P lap ofelia , POD1 pt is doing fine, no significant abdominal pain, tolerated diet, no Nusea,no vomiting, no fever, Review of Systems Constitutional: obesity Eyes: as per Subjective / HPI Respiratory: as per Subjective / HPI Cardiovascular: as per Subjective / HPI Gastrointestinal: as per Subjective / HPI Genitourinary: as per Subjective / HPI Integumentary: as per Subjective / HPI Neurologic: as per Subjective / HPI Psychiatric: as per Subjective / HPI Endocrine: as per Subjective / HPI Physical Exam Constitutional: WD/WN, vitals as above Eyes: PERRL, conjunctivae normal, anicteric sclerae Neck: trachea midline, no thyromegaly Respiratory: normal respiratory effort, lungs clear to auscultation Cardiovascular: RRR, no murmur, no edema Gastrointestinal (Abdomen): soft, mild tenderness at incision sites, no rebound pain, no distend, BS +, Musculoskeletal: no cyanosis or clubbing, extremities motor strength 5/5 Neurologic: patellar DTR's 2+ bilat, sensation intact Psychiatric: A+Ox3, euthymic affect Results & Data ([facility]) Vital Signs (Past 12 Hours) Vital Signs Temp Pulse Resp BP Pulse Ox O2 Del Method 07/27/22 10:52 36.5 C 80 18 146/94 H 97 Room Air 07/27/22 07:26 36.8 C 82 18 157/94 H 97 Room Air 07/27/22 04:30 36.7 C 77 16 145/79 H 95 Room Air Laboratory Results Abnormal lab results 07/27/22 07/27/22 Range/Units 08:15 08:15 MCV 74.4 L (80.0-100.0) fL MCH 23.8 L (25.0-34.0) pg RDW Coeff of Sultana 14.9 H (11.5-14.5) % MPV 9.0 L (9.4-12.3) fL Neut # (Auto) 6.59 H (1.4-6.5) K/uL Immature Gran # (Auto) 0.05 H (0.00-0.02) K/uL AST 44 H (13-39) U/L ALT 124 H (7-52) U/L Alkaline Phosphatase 153 H (34-104) U/L
--- NOTE | 2022-07-28 03:23 | Discharge Summary (DS) ---
DATE OF ADMISSION: 07/25/2022. DATE OF DISCHARGE: 07/27/2022. ADMISSION DIAGNOSES: Acute cholecystitis, cholelithiasis. DISCHARGE DIAGNOSES: Acute cholecystitis, cholelithiasis. OPERATION: Laparoscopic cholecystectomy. SURGEON: Saurav Bean MD DETAILS OF DISCHARGE SUMMARY: This is a 37-year-old female who was admitted to the hospital for acut e cholecystitis, cholelithiasis and I did laparoscopic cholecystectomy on 07/26/2022. The patient is doing fine. The patient stayed in the hospital overnight. The patient tolerated the diet and the p atient had no significant pain and no fever. PHYSICAL EXAMINATION: VITAL SIGNS: Temperature is 36.5, heart rate 80, respiratory rate 18, blood pressure 146/94, O2 satu ration 97% on room air. GENERAL: The patient is alert, awake, oriented x3. HEENT: Within normal limitation. NEUROLOGIC: Intact. NECK: No JVD. CHEST: Bilateral lung sounds clear. HEART: Normal S1 and S2. No murmur. ABDOMEN: Soft, mild tenderness on the incision site. No rebound pain, no distention. Bowel sounds positive. All incisions intact. No redness. EXTREMITIES: No edema. The patient wanted to go home today. We gave the patient postoperative care instruction, the patient understands. I will follow up the patient in 2 weeks. Job ID: [id number]
== END 2022-07-27 13:57 | disposition home or self-care (01) ==
LOC: ED 23:28 → 3N 23:28